=== PATIENT | male | born 1990 | race Caucasian/White ===

== ENCOUNTER 2020-07-19 16:04 | Emergency (ER) | payer OTHER ==
[2020-07-19] MEDS ORDERED: Morphine 4 MG/ML VIAL ONE ×2 (16:48→17:27)
[2020-07-19] MEDS ORDERED: Dexamethasone 4 mg/ml Vial ONE (16:49)
[2020-07-19] MEDS ORDERED: Ketorolac Tromethamine 30 MG/ML VIAL ONE (16:49)
== END 2020-07-19 17:45 | disposition home or self-care (01) ==
LOC: NAV ERS 16:04
DX: S23.41XA Sprain of ribs, initial encounter (principal); M62.838 Other muscle spasm; Z76.0 Encounter for issue of repeat prescription; M54.5 Low back pain; Z87.891 Personal history of nicotine dependence; Z79.899 Other long term (current) drug therapy; W18.40XA Slipping, tripping and stumbling without falling, unspecified, initial encounter
CPT/HCPCS: 96374; 96375; 96376; J1100; J1885; J2270

== ENCOUNTER 2020-08-01 21:43 | Emergency (ER) | payer OTHER ==
[2020-08-01] MEDS ORDERED: Morphine 4 MG/ML VIAL ONE (22:03)
[2020-08-01] MEDS ORDERED: methylPREDNISolone Sod Succ/PF 125 MG/2 ML VIAL ONE (23:29)
[2020-08-01] MEDS ORDERED: Ketorolac Tromethamine 30 MG/ML VIAL ONE (23:29)
[2020-08-01] MEDS ORDERED: Diazepam 10 MG/2 ML SYRINGE ONE (23:29)
== END 2020-08-02 | disposition home or self-care (01) ==
LOC: NAV ERS 21:43
DX: M54.5 Low back pain (principal); G89.29 Other chronic pain; Z79.899 Other long term (current) drug therapy
CPT/HCPCS: 96374; 96375; J1885; J2270; J2930; J3360

== ENCOUNTER 2020-08-25 12:43 | Emergency (ER) | payer OTHER ==
[2020-08-25] MEDS ORDERED: Ondansetron PF 4 MG/2 ML Vial ONE (13:34)
[2020-08-25] MEDS ORDERED: Sodium Chloride 0.9% 2,000 ML ONE (13:34)
[2020-08-25 13:36] LABS: #Basophils 0.1 thou/uL (0.0-0.2); #Eosinphils 0.1 thou/uL (0.0-0.7); #Lymphocytes 1.4 thou/uL (1.20-3.40); #Monocytes 0.5 thou/uL (0.11-0.59); %Basophils 1.3 % (0.0-1.0); %Eosinophils 1.4 % (0.0-10.0); %Lymphocytes 20.1 % (21.0-51.0); %Monocytes 7.1 % (0.0-10.0); %Neutrophils 70.1 % (42.0-75.0); Hemoglobin 15.4 g/dL (14.0-18.0); Mean Corpuscular HGB CONC 32.8 g/dL (32.0-36.0); Mean Corpuscular Hemoglobin 29.8 pg (27.0-31.0); Mean Corpuscular Volume 91.1 fL (78.0-98.0); Mean Platelet Volume 6.8 fL (7.4-10.4); Platelet Count 145 thou/uL (130-400); RBC Distribution Width 11.5 % (11.5-14.5); Red Blood Cell (RBC) Count 5.15 mill/uL (4.70-6.10); White Blood Cell (WBC) Count 7.1 thou/uL (4.8-10.8)
[2020-08-25 13:52] LABS: ALT (SGPT) 12 U/L (8-55); AST (SGOT) 9 U/L (5-34); Alkaline Phosphatase 40 U/L (40-110); Anion Gap 15 mmol/L (10-20); BUN (Urea Nitrogen) 7 mg/dL (8.9-20.6); Bilirubin, Total 0.4 mg/dL (0.2-1.2); Calc. Creatinine Clearance 0 mL/min (70-130); Calcium 9.2 mg/dL (7.8-10.44); Carbon Dioxide 23 mmol/L (22-29); Chloride 108 mmol/L (98-107); Globulin 2.5 g/dL (2.4-3.5); Glucose 115 mg/dL (70-105); Potassium 4.1 mmol/L (3.5-5.1); Protein, Total 6.5 g/dL (6.0-8.3); Sodium 142 mmol/L (136-145)
[2020-08-25] MEDS ORDERED: Meclizine HCl 25 MG TAB ONE (15:29)
== END 2020-08-25 15:37 | disposition home or self-care (01) ==
LOC: NAV ERS 12:43
DX: E86.0 Dehydration (principal); H81.21 Vestibular neuronitis, right ear; Z87.891 Personal history of nicotine dependence; R11.2 Nausea with vomiting, unspecified
CPT/HCPCS: 80053; 85025; 93005; 96374; J2405; J7050

== ENCOUNTER 2020-08-26 11:09 | Emergency (ER) | payer OTHER ==
[2020-08-26] MEDS ORDERED: Sodium Chloride 0.9% 1,000 ML ONE (11:52)
[2020-08-26] MEDS ORDERED: Meclizine HCl 25 MG TAB ONE (11:52)
[2020-08-26] MEDS ORDERED: Ondansetron PF 4 MG/2 ML Vial ONE (11:52)
== END 2020-08-26 13:13 | disposition home or self-care (01) ==
LOC: NAV ERS 11:09
DX: R42 Dizziness and giddiness (principal); Z87.891 Personal history of nicotine dependence
CPT/HCPCS: 96374; J2405; J7050

== ENCOUNTER 2020-08-27 20:14 | Emergency (ER) | payer OTHER ==
[2020-08-27] MEDS ORDERED: Ondansetron PF 4 MG/2 ML Vial ONE (20:31)
[2020-08-27] MEDS ORDERED: Sodium Chloride 0.9% 1,000 ML ONE (20:31)
[2020-08-27 21:51] LABS: ALT (SGPT) 11 U/L (8-55); AST (SGOT) 10 U/L (5-34); Albumin 4.1 g/dL (3.5-5.0); Alkaline Phosphatase 41 U/L (40-110); Anion Gap 14 mmol/L (10-20); BUN (Urea Nitrogen) 5 mg/dL (8.9-20.6); Bilirubin, Total 0.6 mg/dL (0.2-1.2); Calc. Creatinine Clearance 0 mL/min (70-130); Calcium 9.1 mg/dL (7.8-10.44); Carbon Dioxide 23 mmol/L (22-29); Chloride 106 mmol/L (98-107); Globulin 2.6 g/dL (2.4-3.5); Glucose 95 mg/dL (70-105); Lipase 38 U/L (8-78); Potassium 3.6 mmol/L (3.5-5.1); Protein, Total 6.7 g/dL (6.0-8.3); Sodium 139 mmol/L (136-145)
== END 2020-08-27 22:30 | disposition home or self-care (01) ==
LOC: NAV ERS 20:14
DX: F10.239 Alcohol dependence with withdrawal, unspecified (principal); Z87.891 Personal history of nicotine dependence; Z79.899 Other long term (current) drug therapy
CPT/HCPCS: 80053; 83690; 96374; J2405; J7050